=== PATIENT | female | born 1975 | race African-American/Black ===

== ENCOUNTER 2018-10-24 19:22 | Emergency (ER) | payer MEDICAID ==
[~2018-10-24] VITALS: Ht 172.7 cm; Wt 100.0 kg
[2018-10-24 20:42] LABS: BASOPHILS % 0.2 % (0.0-2.0); EOSINOPHILS % 0.3 % (0.0-5.0); HEMATOCRIT. 37.5 % (36.0-48.0); HEMOGLOBIN. 12.6 g/dL (12.0-16.0); LYMPHOCYTES % 50.8 % (20.0-50.0); MEAN CORPUSCULAR HEMOGLOBIN 31.3 pg (28.0-32.0); MEAN CORPUSCULAR VOLUME 92.8 fL (81.0-99.0); MEAN PLATELET VOLUME 6.4 fl (7.4-10.4); MONOCYTES % 5.5 % (2.0-8.0); NEUTROPHILS % 43.2 % (40.0-76.0); PLATELET 239 x1000/uL (130-400); RED BLOOD CELL COUNT 4.04 mill/uL (4.2-5.4); RED CELL DISTRIBUTION WIDTH 13.8 % (11.6-14.6)
[2018-10-24 20:47] LABS: CHLORIDE 103 mEq/L (98-107)
[2018-10-24 21:01] LABS: ETHANOL BLOOD 341 mg/dL
[2018-10-24 21:03] LABS: HCG SCREEN NEGATIVE
[2018-10-24] MEDS ORDERED: KCL 20MEQ/100ML PREMIX 100 ML IV ONE (21:45)
[2018-10-24 22:29] LABS: CLARITY URINE CLEAR (CLEAR); COLOR URINE YELLOW (YELLOW); KETONES URINE NEGATIVE (NEGATIVE); LEUKOCYTE ESTERASE URINE NEGATIVE (NEGATIVE); NITRITE URINE NEGATIVE (NEGATIVE); OCCULT BLOOD URINE NEGATIVE (NEGATIVE); PH URINE 6.5 (4.5-8.0); PROTEIN URINE NEGATIVE (NEGATIVE); SPECIFIC GRAVITY URINE 1.006 (1.005-1.030); UROBILINOGEN URINE 0.2 E.U./dL (0.2-1.0)
[2018-10-24 22:39] LABS: *AMPHETAMINES SCREEN URINE NEGATIVE (NEGATIVE); *COCAINE SCREEN URINE NEGATIVE (NEGATIVE); METHADONE URINE SCREEN NEGATIVE (NEGATIVE); OPIATES URINE SCREEN NEGATIVE (NEGATIVE); PHENCYCLIDINE URINE SCREEN NEGATIVE (NEGATIVE)
[2018-10-24 22:40] LABS: *BARBITURATES SCREEN URINE NEGATIVE (NEGATIVE)
[2018-10-24 22:49] LABS: *BENZODIAZEPINES SCREEN URINE PRESUMTIVE POSITIVE (NEGATIVE); CANNABINOID URINE SCREEN PRESUMTIVE POSITIVE (NEGATIVE)
[2018-10-25 01:51] VITALS: BP 117/81
== END 2018-10-25 01:30 | disposition home or self-care (01) ==
LOC: ER 19:30 → EDBD 19:30 → ER 10-25 01:30
DX: F10.229 Alcohol dependence with intoxication, unspecified (principal); G93.49 Other encephalopathy; E87.6 Hypokalemia; E83.51 Hypocalcemia; F12.10 Cannabis abuse, uncomplicated; F13.10 Sedative, hypnotic or anxiolytic abuse, uncomplicated; Y90.8 Blood alcohol level of 240 mg/100 ml or more
CPT/HCPCS: 36415; 70450; 80053; 80305; 81003; 81025; 84703; 85025; 96365; 96366; 99284; G0482; J3480